=== PATIENT | female | born 1960 ===

== ENCOUNTER → 2016-10-11 | Outpatient (CLI) | payer BC ==
[~2016-10-11] MED LIST: GADOBUTROL 10mMol/10ml INJECTION IV ONE; SALINE FLUSH 10ml SYRINGE ONE
--- NOTE | 2016-10-11 14:05 | DI ---
Indication: ITS.REASON: H90.3 SENSORINEURAL HEARING LOSS PROCEDURE: MRI BRAIN W/IAC W/WO CONTRAST: Encounter: Initial Comparison: None TECHNIQUE: Standard MRI brain images were obtained with and without contrast. Then small [id number], high resolution, pre- and postcontrast images with and without fat suppression were also obtained through the internal auditory canals. FINDINGS: There is mild cortical atrophy with scattered nonspecific periventricular and subcortical white matter changes. There is no definite white matter changes with high specificity for a demyelinating disease. There is no mass, mass effect, or midline shift. No evidence for intracranial hemorrhage. No intra or extra-axial fluid collections. There is no evidence for acute ischemic process on diffusion weighted sequences. There is no abnormal area of enhancement, including no abnormal area of meningeal enhancement. The included portions of the paranasal sinuses are clear. IAC: The fluid signal characteristics of the internal auditory canals appear preserved. The cochlea and vestibular nerves are identified and are unremarkable. There is no evidence for schwannoma or mass effect. No cochlear abnormality or semicircular canal abnormality. IMPRESSION: Mild cortical atrophy with mild periventricular and subcortical white matter changes. Otherwise normal MR brain with and without contrast. No evidence for acute intracranial hemorrhage, acute intracranial infarct, or mass. Normal IAC with and without contrast. .
== END ==
LOC: IMA 06:37
PROVIDERS: ATTEND Otolaryngology Otology & Neurotology
DX: H90.3 Sensorineural hearing loss, bilateral (principal); G31.89 Other specified degenerative diseases of nervous system
CPT/HCPCS: 70553; A9585